=== PATIENT | male | born 1995 | race Two or more races ===

== ENCOUNTER 2022-03-23 12:47 | Emergency (ER) | payer OTHER ==
[~2022-03-23] VITALS: Ht 165.1 cm; Wt 48.5 kg
[2022-03-23 12:49] VITALS: BP 139/73
--- NOTE | 2022-03-23 13:36 | NUR ---
RAPID STREP AND COVID SWAB OBTAINED AND SENT TO LAB
== END 2022-03-23 15:36 | disposition home or self-care (01) ==
LOC: ER 12:59
DX: Z20.822 Contact with and (suspected) exposure to COVID-19 (principal); Z13.89 Encounter for screening for other disorder
CPT/HCPCS: 99283; 87426; 87070; 87880; C9803; 86403-TC

== ENCOUNTER 2022-08-07 17:52 | Emergency (ER) | payer OTHER ==
[~2022-08-07] VITALS: Ht 167.6 cm; Wt 68.0 kg
[2022-08-07 19:10] VITALS: BP 109/72
== END 2022-08-07 22:30 | disposition home or self-care (01) ==
LOC: ER 18:02
DX: S93.402A Sprain of unspecified ligament of left ankle, initial encounter (principal); X50.1XXA Overexertion from prolonged static or awkward postures, initial encounter; Y93.41 Activity, dancing; Y92.89 Other specified places as the place of occurrence of the external cause; Y99.8 Other external cause status
CPT/HCPCS: 73610-TC